=== PATIENT | female | born 1980 | race Caucasian/White ===

== ENCOUNTER 2017-07-31 19:22 | Emergency (ER) | payer OTHER ==
[~2017-07-31] VITALS: Ht 157.5 cm; Wt 98.0 kg
[2017-07-31 20:55] LABS: HEMATOCRIT 44.8 % (36.0-46.0); MCH 29.4 PG (29.0-34.0); MCHC 33.5 G/DL (30.0-36.0); MCV 87.8 FL (83-99); PLATELET COUNT 257 K/uL (156-360); RBC DIS.WIDTH-CV 13.1 % (11.8-14.6); RBC DIS.WIDTH-SD 42.7 % (39-53); WHITE BLOOD COUNT 12.5 K/uL (4.1-10.2)
[2017-07-31 21:07] LABS: ALBUMIN 4.2 g/dL (3.2-4.8); CHLORIDE 104 mEq/L (99-109); POTASSIUM 4.2 mEq/L (3.7-5.4); SODIUM 138 mEq/L (136-147)
[2017-07-31 21:10] LABS: GLUCOSE 108 mg/dL (70-99); TOTAL PROTEIN 7.4 g/dL (6.4-8.3)
[2017-07-31 21:11] LABS: TOTAL BILIRUBIN 0.5 mg/dL (0.0-1.0)
[2017-07-31 21:13] LABS: ALKALINE PHOSPHATASE 76 IU/L (3-129); CREATININE 0.8 mg/dL (0.6-1.3)
[2017-07-31 21:14] LABS: GFR ESTIMATE (CALCULATED) > 59 mL/min/; UREA NITROGEN (BUN) 10 mg/dL (9-23)
[2017-07-31 21:15] LABS: AST (GOT) 19 IU/L (2-34)
[2017-07-31 21:16] LABS: ALT (GPT) 19 IU/L (3-49)
[2017-07-31 21:23] LABS: QUANTITATIVE HCG < 4.0 MIU/ML
[2017-07-31 22:10] LABS: APPEARANCE SL.HAZY ((CLEAR)); BILIRUBIN NEGATIVE; BLOOD MODERATE; COLOR YELLOW ((YELLOW)); GLUCOSE (STRIP) NEGATIVE; KETONES NEGATIVE; LEUKOCYTES NEGATIVE; NITRITE NEGATIVE; PROTEIN (STRIP) NEGATIVE; SPECIFIC GRAVITY 1.013 (1.000-1.030); UROBILINOGEN 0.2 MG/DL (0.2-1.0)
[2017-07-31 22:14] LABS: BACTERIA RARE /HPF; EPITHELIAL CELLS 2+ /HPF; MUCUS TRACE /LPF; RED BLOOD CELLS 15-20 /HPF (0-5); UCUL ADDED? NO; WHITE BLOOD CELLS 0-5 /HPF (0-5)
[2017-08-01 00:46] VITALS: BP 119/60
== END 2017-08-01 00:48 | disposition home or self-care (01) ==
LOC: RME 19:22 → EME 19:22 → RME 08-01 00:48
DX: K52.9 Noninfective gastroenteritis and colitis, unspecified (principal); R10.31 Right lower quadrant pain
CPT/HCPCS: 74177; 80053; 81003; 84702; 85027; 99281; 99284; J2405; J3010; J7030